=== PATIENT | female | born 1955 | race African-American/Black ===

== ENCOUNTER 2022-07-11 06:25 | Inpatient (IN) | payer MEDICARE ==
[~2022-07-11] VITALS: Ht 170.2 cm; Wt 89.8 kg
[2022-07-11] MEDS ORDERED: ALBUTEROL/IPRATROPIUM 3 ML NEB ONE (07:00)
[2022-07-11] MEDS ORDERED: ALBUTEROL/IPRATROPIUM 3 ML NEB NEB ONE (07:00)
[2022-07-11] MEDS ORDERED: FUROSEMIDE INJ 10 MG/ML 4 ML VIAL IV ONE (08:45)
[2022-07-11] MEDS ORDERED: FUROSEMIDE INJ 10 MG/ML 4 ML VIAL ONE (08:55)
[2022-07-11] MEDS ORDERED: ASPIRIN 81 MG CHEW TAB PO ONE (09:00)
[2022-07-11] MEDS ORDERED: SODIUM CHLORIDE FLUSH 10 ML SYR INJ PRN (09:00)
[2022-07-11] MEDS ORDERED: ONDANSETRON HCL INJ 2MG/ML 2ML 2 MG/ML VIAL IV PRN (09:00)
[2022-07-11] MEDS ORDERED: NITROGLYCERIN 0.4 MG SUBL SL PRN (09:00)
[2022-07-11] MEDS ORDERED: ASPIRIN 81 MG CHEW TAB ONE (09:39)
[2022-07-11 11:37] VITALS: BP 146/91
[2022-07-11 12:11] VITALS: BP 146/91
[2022-07-11] MEDS: AMOXICILLIN 250 MG CAP PO SCH ×2 (12:25→18:26)
[2022-07-11] MEDS ORDERED: LEVOTHYROXINE112 MCG PO (12:44)
[2022-07-11] MEDS ORDERED: ATORVASTATIN CA20 MG PO (12:45)
[2022-07-11] MEDS ORDERED: LORATADINE10 MG PO (12:45)
[2022-07-11] MEDS ORDERED: HYDROXYZINE HCL25 MG PO (12:46)
[2022-07-11] MEDS ORDERED: OMEPRAZOLE40 MG PO (12:47)
[2022-07-11] MEDS ORDERED: LOSARTAN POTASS25 MG PO (12:49)
[2022-07-11 16:31] VITALS: BP 115/90
[2022-07-11 17:22] LABS: CREATINE KINASE MB 2.7 ng/mL (0-5.0)
[2022-07-11 20:00] VITALS: BP 121/90
[2022-07-11 21:29] VITALS: BP 121/90
[2022-07-12] VITALS (13 sets, daily range): BP systolic 97–139; BP diastolic 59–97
[2022-07-12 01:39] LABS: CREATINE KINASE MB 2.6 ng/mL (0-5.0)
[2022-07-12 06:38] LABS: BASOPHILS % 1.1 % (0.0-1.0); EOSINOPHILS # (AUTO) 0.2 (0.0-0.4); EOSINOPHILS % 6.1 % (0.0-6.0); HEMATOCRIT 38.5 % (34.2-44.1); HEMOGLOBIN 12.1 g/dL (12.0-16.0); LYMPHOCYTES # (AUTO) 1.8 (1.0-3.2); MEAN CORPUSCULAR HEMOGLOBIN 30.2 pg (28-32); MEAN CORPUSCULAR HGB CONC 31.4 g/dL (31-35); MONOCYTES # (AUTO) 0.3 (0.2-0.8); MONOCYTES % 6.9 % (4.4-11.3); NEUTROPHILS # (AUTO) 1.3 (2.1-6.9); NEUTROPHILS % 36.6 % (38.7-80.0); PLATELET COUNT 298 x10e3/uL (140-360); RED BLOOD COUNT 4.01 x10e6/uL (3.6-5.1); RED CELL DISTRIBUTION WIDTH 13.2 % (11.7-14.4)
[2022-07-12 07:06] LABS: ALBUMIN 4.1 g/dL (3.5-5.0); ALBUMIN/GLOBULIN RATIO 1.1 (0.8-2.0); ANION GAP 18.6 mmol/L (8-16); CALCIUM 9.9 mg/dL (8.4-10.2); CHOL/HDL RATIO 3.7 (3.0-3.6); CREATININE, SERUM 1.11 mg/dL (0.57-1.11); POTASSIUM 3.6 mmol/L (3.5-5.1)
[2022-07-12] MEDS: FUROSEMIDE INJ 10 MG/ML 4 ML VIAL IV SCH (09:51)
[2022-07-12] MEDS: AMOXICILLIN 250 MG CAP PO SCH ×2 (09:51→16:30)
[2022-07-12] MEDS ORDERED: PANTOPRAZOLE SOD 40 MG TABEC PO PRN (10:15)
[2022-07-12] MEDS ORDERED: LEVOTHYROXINE SODIUM 112 MCG TAB PO ONE (10:30)
[2022-07-12] MEDS: ALBUTEROL SULF 0.083% NEB SOLN 3 ML NEB NEB SCH ×3 (10:55→22:30)
[2022-07-12 11:20] LABS: CREATINE KINASE MB 5.3 ng/mL (0-5.0)
[2022-07-12] MEDS ORDERED: LEVOTHYROXINE SODIUM 125 MCG TAB PO ONE (11:30)
[2022-07-12] MEDS ORDERED: LIDOCAINE HCL 1% LOCAL INJ 20 ML VIAL ONE (16:23)
[2022-07-12] MEDS ORDERED: HEPARIN SOD/SOD CHLORIDE 2,000 ML ONE (16:23)
[2022-07-12] MEDS ORDERED: IOPAMIDOL 370 MG/ML 100 ML INFUS..BTL INJ ONE ×2 (16:23→16:25)
[2022-07-12] MEDS ORDERED: SODIUM CHLORIDE 0.9% 1000ML 1,000 ML ONE ×2 (16:25→20:22)
[2022-07-12] MEDS ORDERED: NITROGLYCERIN/D5W 200 MCG/ML 250 ML ONE (16:25)
[2022-07-12] MEDS ORDERED: HEPARIN SOD (PORCINE) 1000 UNIT/ML 30ML ONE (16:25)
[2022-07-12] MEDS ORDERED: VERAPAMIL HCL 2.5 MG/ML 2 ML VIAL ONE (16:25)
[2022-07-12] MEDS ORDERED: MIDAZOLAM HCL 2 MG/2 ML VIAL ONE (16:26)
[2022-07-12] MEDS ORDERED: FENTANYL CITRATE/PF 100MCG/2 ML INJ ONE (16:27)
[2022-07-12] MEDS ORDERED: NOREPINEPHRINE 8 MG/D5W 250 ML 0 ML ONE (16:55)
[2022-07-12] MEDS ORDERED: ONDANSETRON HCL INJ 2MG/ML 2ML 2 MG/ML VIAL ONE (16:58)
[2022-07-12 17:52] LABS: ABG HCO3 26 mmol/L (22-26); ABG PCO2 44 mmHg (35-45); ABG PH 7.37 (7.35-7.45); ABG PO2 70 mmHg (80-105); ABG TCO2 27
[2022-07-12 17:54] LABS: ABG HCO3 26 mmol/L (22-26); ABG PCO2 46 mmHg (35-45); ABG PH 7.36 (7.35-7.45); ABG PO2 108 mmHg (80-105); ABG TCO2 27
[2022-07-12 17:54] LABS: ABG HCO3 26 mmol/L (22-26); ABG PCO2 47 mmHg (35-45); ABG PH 7.35 (7.35-7.45); ABG PO2 56 mmHg (80-105); ABG TCO2 28
[2022-07-12] MEDS ORDERED: LOSARTAN POTASSIUM 25 MG TAB PO SCH (21:00)
[2022-07-12] MEDS: ATORVASTATIN 40 MG TAB PO SCH (21:00)
[2022-07-12] MEDS: ACETAMINOPHEN 325 MG TAB PO PRN (21:42)
[2022-07-13] VITALS (25 sets, daily range): BP systolic 76–132; BP diastolic 47–103
[2022-07-13] MEDS: LEVOTHYROXINE SODIUM 125 MCG TAB PO SCH (06:13)
[2022-07-13] MEDS: ALBUTEROL SULF 0.083% NEB SOLN 3 ML NEB NEB SCH ×4 (07:00→19:45)
[2022-07-13] MEDS: LORATADINE 10 MG TAB PO SCH (09:00)
[2022-07-13] MEDS: AMOXICILLIN 250 MG CAP PO SCH ×2 (09:00→16:37)
[2022-07-13] MEDS: ACETAMINOPHEN 325 MG TAB PO PRN (09:02)
[2022-07-13] MEDS: METOPROLOL SUCCINATE 25 MG TAB XL PO SCH (17:42)
[2022-07-13] MEDS: ATORVASTATIN 40 MG TAB PO SCH (21:30)
[2022-07-14] VITALS: BP 100/58
[2022-07-14] MEDS: ALBUTEROL SULF 0.083% NEB SOLN 3 ML NEB NEB SCH ×2 (01:05→07:00)
[2022-07-14 04:00] VITALS: BP 113/77
[2022-07-14] MEDS: LEVOTHYROXINE SODIUM 125 MCG TAB PO SCH (06:20)
[2022-07-14 06:29] LABS: EOSINOPHILS # (AUTO) 0.3 (0.0-0.4); EOSINOPHILS % 6.4 % (0.0-6.0); HEMOGLOBIN 11.5 g/dL (12.0-16.0); LYMPHOCYTES # (AUTO) 1.9 (1.0-3.2); LYMPHOCYTES % 44.4 % (18.0-39.1); MEAN CORPUSCULAR HEMOGLOBIN 30.2 pg (28-32); MEAN CORPUSCULAR HGB CONC 31.1 g/dL (31-35); MEAN CORPUSCULAR VOLUME 97.1 fL (81-99); MONOCYTES # (AUTO) 0.4 (0.2-0.8); MONOCYTES % 9.5 % (4.4-11.3); NEUTROPHILS # (AUTO) 1.6 (2.1-6.9); NEUTROPHILS % 38.7 % (38.7-80.0); PLATELET COUNT 287 x10e3/uL (140-360); RED BLOOD COUNT 3.81 x10e6/uL (3.6-5.1)
[2022-07-14 06:50] LABS: ANION GAP 13.8 mmol/L (8-16); CALCIUM 9.1 mg/dL (8.4-10.2); CREATININE, SERUM 1.01 mg/dL (0.57-1.11); POTASSIUM 3.8 mmol/L (3.5-5.1)
[2022-07-14 08:21] VITALS: BP 116/78
[2022-07-14] MEDS ORDERED: LOSARTAN POTASSIUM 25 MG TAB PO SCH (09:00)
[2022-07-14] MEDS: AMOXICILLIN 250 MG CAP PO SCH (09:40)
[2022-07-14] MEDS: FUROSEMIDE INJ 10 MG/ML 4 ML VIAL IV SCH (09:40)
[2022-07-14] MEDS: LORATADINE 10 MG TAB PO SCH (09:40)
[2022-07-14] MEDS: METOPROLOL SUCCINATE 25 MG TAB XL PO SCH (09:41)
[2022-07-14 09:53] VITALS: BP 116/78
[2022-07-14] MEDS ORDERED: ALBUTEROL SULF 0.083% NEB SOLN 3 ML NEB NEB PRN (10:00)
[2022-07-14 12:37] VITALS: BP 107/82
[2022-07-14] MEDS ORDERED: ONDANSETRON HCL 4 MG ORAL DISINTEGRATING TAB PO PRN (13:45)
[2022-07-14] MEDS ORDERED: LOSARTAN POTASS25 MG PO (13:58)
[2022-07-14] MEDS ORDERED: METOPROLOL SUCC25 MG PO (13:59)
[2022-07-15] MEDS ORDERED: FUROSEMIDE 40 MG TAB PO SCH (09:00)
== END 2022-07-14 15:03 | disposition home or self-care (01) | DRG 286 ==
LOC: FSED 06:31 → INTOOBSV 09:00 → ERHOLD 09:00 → MED/SURG2 10:10 → ICU 07-12 19:10 → OBSVTOIN 07-13 09:18 → MED/SURG 07-13 20:24
PROVIDERS: ADMIT Family Medicine; ATTEND Family Medicine
PROC: 4A023N8 Measurement of Cardiac Sampling and Pressure, Bilateral, Percutaneous Approach (ICD-10-PCS; principal; 2022-07-12)
PROC: B2111ZZ Fluoroscopy of Multiple Coronary Arteries using Low Osmolar Contrast (ICD-10-PCS; 2022-07-12)
DX: I11.0 Hypertensive heart disease with heart failure (principal); I50.21 Acute systolic (congestive) heart failure; E78.5 Hyperlipidemia, unspecified; E03.9 Hypothyroidism, unspecified; Z86.16 Personal history of COVID-19; Z20.822 Contact with and (suspected) exposure to COVID-19; I42.9 Cardiomyopathy, unspecified; Z95.810 Presence of automatic (implantable) cardiac defibrillator; J02.0 Streptococcal pharyngitis; Z88.2 Allergy status to sulfonamides
CPT/HCPCS: 36415; 36578; 36600; 71045; 71046; 80048; 80053; 80061; 81003; 81025; 82550; 82553; 82805; 82948; 83518; 83735; 83880; 84443; 84484; 85025; 87400; 93005; 93306; 93460; 94640; 94799; 99152; 99153; 99284; C1887; G0378; J1644; J1940; J2001; J2250; J2405; J3010; J7030; Q9967